=== PATIENT | male | born 1995 | race Two or more races ===

== ENCOUNTER 2022-11-30 20:57 | Emergency (ER) | payer MEDICAID ==
[~2022-11-30] VITALS: Ht 162.6 cm; Wt 63.6 kg
[2022-11-30 21:09] VITALS: BP 127/70
== END 2022-11-30 21:20 | disposition left against medical advice (07) ==
LOC: EMS 21:00
DX: Z53.21 Procedure and treatment not carried out due to patient leaving prior to being seen by health care provider (principal)

== ENCOUNTER 2023-07-04 00:38 | Emergency (ER) | payer MEDICAID ==
[~2023-07-04] VITALS: Ht 165.1 cm; Wt 63.6 kg
[2023-07-04 00:50] VITALS: TEMP 98.2
[2023-07-04 01:48] LABS: BASOPHILS % (AUTO) 0.6 % (0.0-2.0); EOSINOPHILS % (AUTO) 4.3 % (1.0-6.0); HEMATOCRIT 36.5 % (41-53); HEMOGLOBIN 12.9 g/dL (13.5-17.5); LYMPHOCYTES # (AUTO) 1.7 K/uL (1.0-4.8); LYMPHOCYTES % (AUTO) 25.6 % (22.0-44.0); MEAN CORPUSCULAR HEMOGLOBIN 30.1 pg (26.0-34.0); MEAN CORPUSCULAR HGB CONC 35.4 G/dL (31.0-37.0); MEAN CORPUSCULAR VOLUME 85 fL (80-100); MONOCYTES # (AUTO) 0.5 K/uL (0.1-1.0); NEUTROPHILS % (AUTO) 62.5 % (40.0-70.0); PLATELET COUNT (AUTO) 299 K/uL (150-450); RED CELL DISTRIBUTION WIDTH 13.3 % (11.5-14.5); WHITE BLOOD COUNT (AUTO) 6.4 K/uL (4.5-11.0)
[2023-07-04 01:58] LABS: ANION GAP 8 mmol/L (8-16); CALCIUM, TOTAL 9.5 mg/dL (8.8-10.5); CARBON DIOXIDE 30 mmol/L (22-29); CHLORIDE 102 mmol/L (98-107); CREATININE 0.87 mg/dL (0.60-1.30); GLOMERULAR FILTR. RATE CALC > 60 mL/min (>60); GLUCOSE,RANDOM 101 mg/dL (70-110); SODIUM SERUM 140 mmol/L (136-145); UREA NITROGEN, BLOOD 17 mg/dL (7-18)
[2023-07-04 01:59] LABS: ALCOHOL, BLOOD (SERUM) < 3 mg/dL (0-10)
[2023-07-04 02:04] LABS: ALANINE AMINOTRANSFERASE 51 U/L (12-78); ALBUMIN 3.8 g/dL (3.4-5.0); ALKALINE PHOSPHATASE 86 U/L (46-116); ASPARTATE AMINOTRANSFERASE 16 U/L (15-37); BILIRUBIN,TOTAL 0.3 mg/dL (0.1-1.0); TOTAL PROTEIN, SERUM 6.9 g/dL (6.4-8.2)
[2023-07-04 04:50] LABS: COVID AG,FIA SOURCE NASAL SWAB
[2023-07-04 05:03] LABS: SARS-COV2 (COVID) ANTIGEN,FIA Negative (Negative)
[2023-07-04 09:40] VITALS: BP 128/72; PULSE 68; RESP 16
== END 2023-07-04 10:24 | disposition home or self-care (01) ==
LOC: EMS 00:39
DX: F32.A Depression, unspecified (principal); F43.20 Adjustment disorder, unspecified; F11.90 Opioid use, unspecified, uncomplicated; Z98.890 Other specified postprocedural states; Z20.822 Contact with and (suspected) exposure to COVID-19
CPT/HCPCS: 99285; 87426; 80053; 85025; 36415; G0480